=== PATIENT | female | born 1930 | race Caucasian/White ===

== ENCOUNTER 2016-10-17 20:36 | Inpatient (IN) | payer MEDICARE, OTHER ==
[~2016-10-17] VITALS: Ht 152.4 cm; Wt 64.9 kg
[2016-10-17] MEDS ORDERED: CLONIDINE HCL 0.1 MG TABLET ONE (21:09)
[2016-10-17 21:25] LABS: BASOPHILS % (AUTO) 0.4 % (0.0-2.0); EOSINOPHILS # (AUTO) 0.1 /CMM (0.0-0.7); EOSINOPHILS % (AUTO) 2.5 % (0.0-6.0); HEMATOCRIT 35 % (33-45); HEMOGLOBIN 11.8 g/dL (11.5-14.8); LYMPHOCYTES # (AUTO) 1.1 /CMM (0.8-4.8); LYMPHOCYTES % (AUTO) 22.4 % (20.0-44.0); MEAN CORPUSCULAR HEMOGLOBIN 29 PG (26.0-33.0); MEAN CORPUSCULAR HGB CONC 34 g/dl (31.0-36.0); MEAN CORPUSCULAR VOLUME 85 fL (82-100); MONOCYTES # (AUTO) 0.4 /CMM (0.1-1.30); MONOCYTES % (AUTO) 8.2 % (2.0-12.0); NEUTROPHILS # (AUTO) 3.4 /CMM (1.8-8.9); NEUTROPHILS % (AUTO) 66.5 % (43.0-81.0); PLATELET COUNT (AUTO) 231 /CMM (150-450); RDW COEFFICIENT OF VARIATION 14.3 (11.5-15.0); RED BLOOD CELL COUNT(AUTO) 4.11 MIL/uL (4.0-5.2)
[2016-10-17] MEDS ORDERED: ASPIRIN 81 MG TAB.CHEW PO ONE (21:30)
[2016-10-17] MEDS ORDERED: CLONIDINE HCL 0.1 MG TABLET PO ONE (21:30)
[2016-10-17] MEDS ORDERED: ASPIRIN 81 MG TAB.CHEW ONE (21:34)
[2016-10-17 21:36] LABS: CALCIUM, SERUM 7.9 mg/dL (8.5-10.1); CARBON DIOXIDE 30 mmol/L (21-32); CHLORIDE 109 mmol/L (98-107); GLUCOSE 151 mg/dL (74-106); POTASSIUM 3.7 mmol/L (3.5-5.1); SODIUM SERUM 145 mmol/L (136-145); UREA NITROGEN, BLOOD 22 mg/dL (7-18)
[2016-10-17] MEDS ORDERED: ASPIRIN EC 81 MG TABLET.DR PO ONE (21:36)
[2016-10-17 21:42] LABS: ALANINE AMINOTRANSFERASE 18 U/L (12-78); ALBUMIN 2.8 g/dL (3.4-5.0); ALKALINE PHOSPHATASE 47 U/L (46-116); ASPARTATE AMINOTRANSFERASE 17 U/L (15-37); BILIRUBIN,TOTAL 0.2 mg/dL (0.2-1.0); TOTAL PROTEIN, SERUM 5.5 g/dL (6.4-8.2)
[2016-10-17 21:45] LABS: INR 0.95 (0.87-1.13); PROTHROMBIN TIME 9.9 SECS (9.5-12.7)
[2016-10-17] MEDS ORDERED: CLON0.1T PO (22:57)
[2016-10-17] MEDS ORDERED: NITR0.3T SL (22:57)
[2016-10-17] MEDS ORDERED: NITR0.4T SL ×2 (22:57)
[2016-10-17] MEDS ORDERED: RAMI10CA PO (22:57)
[2016-10-17] MEDS ORDERED: OLME1TAB3 PO (22:57)
[2016-10-18] VITALS (8 sets, daily range): BP systolic 141–191; BP diastolic 67–90
[2016-10-18] MEDS ORDERED: ACETAMINOPHEN 325 MG TABLET PO PRN (00:30)
[2016-10-18] MEDS ORDERED: ONDANSETRON HCL/PF 4 MG/2 ML VIAL IVP PRN (00:30)
[2016-10-18] MEDS ORDERED: MAGNESIUM HYDROXIDE 30 ML UDC PO PRN (00:30)
[2016-10-18] MEDS ORDERED: HYDROCODONE/APAP 5/325MG 1 EACH TABLET PO PRN (00:30)
[2016-10-18] MEDS ORDERED: MAG HYDROX/AL HYDROX/SIMETH 30 ML UDC PO PRN (00:30)
[2016-10-18] MEDS ORDERED: Z GUARD REMEDY 2 OZ OINT TP PRN (00:30)
[2016-10-18] MEDS ORDERED: ZOLPIDEM TARTRATE 5 MG TABLET ONE (01:03)
[2016-10-18] MEDS: ZOLPIDEM TARTRATE 5 MG TABLET PO PRN ×2 (01:12→21:52)
[2016-10-18] MEDS ORDERED: NITROGLYCERIN 0.4 MG/TAB BOTTLE SL PRN (08:00)
[2016-10-18] MEDS: RAMIPRIL 5 MG CAPSULE PO SCH (11:09)
[2016-10-18] MEDS: CLONIDINE HCL 0.1 MG TABLET PO PRN ×2 (12:11→20:02)
[2016-10-18] MEDS ORDERED: AMLODIPINE BESYLATE 5 MG TABLET PO SCH (12:11)
[2016-10-18] MEDS ORDERED: methylPREDNISolone (4MG) 4 MG TABLET (DAY #1 ) PO ONE (12:30)
[2016-10-18] MEDS: methylPREDNISolone (4MG) 4 MG TABLET (DAY #1, PC LUNCH) PO ONE ×2 (12:52→13:07)
[2016-10-18] MEDS ORDERED: AMLODIPINE BESYLATE 5 MG TABLET PO ONE (14:00)
[2016-10-18] MEDS ORDERED: hydrALAZINE HCL IV 20 MG VIAL IV PRN (15:00)
[2016-10-18] MEDS: hydrALAZINE HCL 10 MG TABLET PO SCH ×2 (16:01→21:52)
[2016-10-18] MEDS ORDERED: LISINOPRIL (20MG) 20 MG TABLET PO SCH (17:00)
[2016-10-18] MEDS ORDERED: methylPREDNISolone (4MG) 4 MG TABLET PO SCH (17:30)
[2016-10-18] MEDS ORDERED: methylPREDNISolone (4MG) 4 MG TABLET (DAY #1 PC DINNER) PO ONE (17:30)
[2016-10-18] MEDS ORDERED: methylPREDNISolone (4MG) 4 MG TABLET (DAY1,HS) PO ONE (22:00)
[2016-10-18] MEDS ORDERED: GLIP2.5T3 PO (22:40)
[2016-10-18] MEDS: BLOOD SUGAR DIAGNOSTIC 1 EACH STRIP VI SCH (22:56)
[2016-10-18] MEDS ORDERED: DEXTROSE 50%-WATER 50 ML DISP.SYRIN IV PRN (23:00)
[2016-10-18] MEDS ORDERED: INSULIN REGULAR, HUMAN 100 UNIT/ML 3 ML VIAL SQ PRN (23:00)
[2016-10-18] MEDS ORDERED: *INSULIN REGULAR(HUMULIN R)HUM 100 UNIT/ML VIAL SQ PRN (23:00)
[2016-10-19] MEDS: hydrALAZINE HCL 10 MG TABLET PO SCH ×3 (03:33→16:19)
[2016-10-19 03:48] LABS: BASOPHILS % (AUTO) 0.1 % (0.0-2.0); HEMATOCRIT 34 % (33-45); HEMOGLOBIN 11.2 g/dL (11.5-14.8); LYMPHOCYTES # (AUTO) 0.7 /CMM (0.8-4.8); LYMPHOCYTES % (AUTO) 9.4 % (20.0-44.0); MEAN CORPUSCULAR HEMOGLOBIN 28 PG (26.0-33.0); MEAN CORPUSCULAR HGB CONC 33 g/dl (31.0-36.0); MEAN CORPUSCULAR VOLUME 85 fL (82-100); MONOCYTES # (AUTO) 0.1 /CMM (0.1-1.30); NEUTROPHILS # (AUTO) 6.7 /CMM (1.8-8.9); NEUTROPHILS % (AUTO) 89.5 % (43.0-81.0); PLATELET COUNT (AUTO) 218 /CMM (150-450); RDW COEFFICIENT OF VARIATION 14.8 (11.5-15.0); RED BLOOD CELL COUNT(AUTO) 3.98 MIL/uL (4.0-5.2); WHITE BLOOD COUNT (AUTO) 7.5 K/uL (4.3-11.0)
[2016-10-19 04:13] LABS: CALCIUM, SERUM 8.1 mg/dL (8.5-10.1); CARBON DIOXIDE 29 mmol/L (21-32); CHLORIDE 107 mmol/L (98-107); CREATININE 0.9 mg/dL (0.6-1.3); GLUCOSE 162 mg/dL (74-106); PHOSPHORUS 3.3 mg/dL (2.5-4.9); POTASSIUM 4.3 mmol/L (3.5-5.1); SODIUM SERUM 141 mmol/L (136-145); UREA NITROGEN, BLOOD 22 mg/dL (7-18)
[2016-10-19 04:16] LABS: CHOLESTEROL 227 mg/dL (<200); HDL CHOLESTEROL 56 mg/dL (40-60); LDL 146 mg/dL (0-99); TRIGLYCERIDES 35 mg/dL (30-150)
[2016-10-19] MEDS ORDERED: methylPREDNISolone (4MG) 4 MG TABLET (DAY#2 ACB) PO ONE (07:30)
[2016-10-19 08:00] VITALS: BP 179/73
[2016-10-19] MEDS ORDERED: AMLODIPINE BESYLATE 5 MG TABLET PO SCH (09:00)
[2016-10-19] MEDS ORDERED: BENICAR HCTZ PO SCH (09:00)
[2016-10-19] MEDS: BLOOD SUGAR DIAGNOSTIC 1 EACH STRIP VI SCH ×3 (09:47→17:27)
[2016-10-19] MEDS: ISOSORBIDE DINITRATE (20MG) 20 MG TABLET PO SCH ×2 (09:57→17:24)
[2016-10-19] MEDS ORDERED: CARVEDILOL 6.25 MG TABLET PO SCH (10:30)
[2016-10-19] MEDS: RAMIPRIL 5 MG CAPSULE PO SCH (11:50)
[2016-10-19] MEDS ORDERED: ISOS20TA8 PO (11:51)
[2016-10-19] MEDS ORDERED: CARV6.252 PO (11:51)
[2016-10-19] MEDS ORDERED: HYDR-4075 PO (11:51)
[2016-10-19] MEDS ORDERED: AMLO5TAB2 PO (11:51)
[2016-10-19] MEDS ORDERED: methylPREDNISolone (4MG) 4 MG TABLET (DAY#2,PC LUNCH) PO ONE (12:30)
[2016-10-19 15:47] VITALS: BP 137/74
[2016-10-19 17:24] VITALS: BP 141/65
[2016-10-19] MEDS ORDERED: methylPREDNISolone (4MG) 4 MG TABLET (DAY#2, PC DINNER) PO ONE (17:30)
[2016-10-19] MEDS ORDERED: methylPREDNISolone (4MG) 4 MG TABLET (DAY#2, HS) PO ONE (21:00)
[2016-10-20] MEDS ORDERED: methylPREDNISolone (4MG) 4 MG TABLET (DAY#3,ACB) PO ONE (07:30)
[2016-10-20] MEDS ORDERED: methylPREDNISolone (4MG) 4 MG TABLET (DAY#3,PC LUNCH) PO ONE (12:30)
[2016-10-20] MEDS ORDERED: methylPREDNISolone (4MG) 4 MG TABLET (DAY#3,PC DINNER) PO ONE (17:30)
[2016-10-20] MEDS ORDERED: methylPREDNISolone (4MG) 4 MG TABLET (DAY#3, HS) PO ONE (22:00)
[2016-10-21] MEDS ORDERED: methylPREDNISolone (4MG) 4 MG TABLET (DAY #4, ACB) PO ONE (07:30)
[2016-10-21] MEDS ORDERED: methylPREDNISolone (4MG) 4 MG TABLET (DAY #4, PC LUNCH) PO ONE (12:30)
[2016-10-21] MEDS ORDERED: methylPREDNISolone (4MG) 4 MG TABLET (DAY#4 HS) PO ONE (22:00)
[2016-10-22] MEDS ORDERED: methylPREDNISolone (4MG) 4 MG TABLET (DAY#5, ACB) PO ONE (07:30)
[2016-10-22] MEDS ORDERED: methylPREDNISolone (4MG) 4 MG TABLET (DAY#5,HS) PO ONE (22:00)
[2016-10-23] MEDS ORDERED: methylPREDNISolone (4MG) 4 MG TABLET (DAY#6,ACB) PO ONE (07:30)
== END 2016-10-19 17:45 | disposition home or self-care (01) | DRG 305 ==
LOC: ER 20:36 → TELE 23:06 → MED 10-18 11:11
PROVIDERS: ADMIT Family Medicine; ATTEND Family Medicine
DX: I16.0 Hypertensive urgency (principal); R07.9 Chest pain, unspecified; E11.9 Type 2 diabetes mellitus without complications; E78.5 Hyperlipidemia, unspecified; I10 Essential (primary) hypertension; M54.5 Low back pain; M54.30 Sciatica, unspecified side
CPT/HCPCS: 36415; 70450-TC; 71010-TC; 80048-TC; 80053-TC; 80061-TC; 82962-TC; 83735-TC; 84100-TC; 84484-TC; 85025-TC; 85730-TC; 87081-TC; 93307-TC; 97001-TC; A4606; J1815; J7509; Z7610

== ENCOUNTER 2017-09-16 12:56 | Emergency (ER) | payer MEDICARE, OTHER ==
[~2017-09-16] VITALS: Ht 154.9 cm; Wt 66.2 kg
[2017-09-16 12:56] VITALS: BP 186/75
[~2017-09-16 12:56] MED LIST: AMLO5TAB7 PO; CARV6.252 PO; GLIP2.5T3 PO; HYDR-4075 PO; ISOS20TA8 PO; NITR0.4T SL; RAMI10CA69 PO
[2017-09-16] MEDS ORDERED: IBUPROFEN 600 MG TABLET PO ONE ×2 (13:59→14:00)
== END 2017-09-16 15:06 | disposition home or self-care (01) ==
LOC: ER 12:59
DX: S52.511A Displaced fracture of right radial styloid process, initial encounter for closed fracture (principal); S52.611A Displaced fracture of right ulna styloid process, initial encounter for closed fracture; E11.9 Type 2 diabetes mellitus without complications; I10 Essential (primary) hypertension; Z79.84 Long term (current) use of oral hypoglycemic drugs; W01.0XXA Fall on same level from slipping, tripping and stumbling without subsequent striking against object, initial encounter; Y93.89 Activity, other specified; Y92.89 Other specified places as the place of occurrence of the external cause; Y99.8 Other external cause status
CPT/HCPCS: 73110; A4606; Z7610